=== PATIENT | male | born 1975 | race African-American/Black ===

== ENCOUNTER 2017-03-08 11:48 | Emergency (ER) | payer MEDICAID ==
[~2017-03-08] VITALS: Ht 180.3 cm; Wt 106.1 kg
[2017-03-08 12:01] VITALS: BP 139/91
[2017-03-08 12:50] LABS: KETONES,URINE NEGATIVE (NEGATIVE); LEUKOCYTE ESTERASE ,URINE NEGATIVE (NEGATIVE); NITRITE,URINE NEGATIVE (NEGATIVE); PH,URINE 8 (4.5-8.0); PROTEIN,URINE NEGATIVE (NEGATIVE); UROBILINOGEN,URINE NORMAL MG/DL (0.0-1.0)
[2017-03-08 12:52] LABS: APPEARANCE,URINE SLIGHTLY CLOUDY
[2017-03-08 13:13] LABS: BACTERIA,URINE OCCASIONAL /HPF; SQUAMOUS EPITHELIAL CELL,UR OCCASIONAL /LPF (NONE/OCC); WBC,URINE 0-2 /HPF (0 - 0)
[2017-03-08 13:14] LABS: MUCUS,URINE FEW /LPF (NONE/OCC)
--- NOTE | 2017-03-08 13:17 | Emergency Room Report ---
History of Present Illness General Chief Complaint: Male Urogenital Problems Source: Patient Present Illness HPI 41-year-old male presents to the emergency department for approximately 4 episodes of hematuria over the course of one month. he also reports intermittent dysuria. Patient denies back pain, abdominal pain, frequency, discharge or testicular swelling. Patient reports red tinge to his urine he denies gross hematuria. denies trauma. denies night sweats , unusual significant changes in weight, or hx of neoplastic disease. Patient denies history of urinary problems. He denies fevers, chills, nausea, vomiting. Denies rashes. Allergies: Coded Allergies: No Known Allergies (Unverified , 03/08/17) Patient History Past Medical History: see triage record Past Surgical History: none Pertinent Family History: none Reviewed Nursing Documentation: PMH: Agreed, PSxH: Agreed Nursing Documentation-PMH Hx Asthma: Yes Review of Systems All Other Systems: negative except mentioned in HPI Physical Exam Vital Signs Date Time Temp Pulse Resp B/P (MAP) Pulse Ox O2 Delivery O2 Flow Rate FiO2 03/08/17 11:53 98.1 99 18 139/91 98 Room Air Sp02 EP Interpretation: reviewed, normal General Appearance: no apparent distress, alert, GCS 15, non-toxic Head: normocephalic, atraumatic Eyes: bilateral eye normal inspection, bilateral eye PERRL ENT: hearing grossly normal, normal voice Neck: full range of motion Respiratory: lungs clear, normal breath sounds, speaking full sentences Cardiovascular #1: regular rate, rhythm Gastrointestinal: normal bowel sounds, non tender, soft, no guarding, no rebound Rectal: deferred Genitourinary: normal inspection, no CVA tenderness Musculoskeletal: back normal, gait/station normal, normal range of motion Neurologic: alert, oriented x3, responsive, motor strength/tone normal, sensory intact, speech normal Skin: normal color, no rash, warm/dry, well hydrated Medical Decision Making PA Attestation Dr. Thakkar is my supervising Physician whom patient management has been discussed with. Diagnostic Impression: Primary Impression: Cystitis Additional Impression: Hematuria Qualified Codes: R31.9 - Hematuria, unspecified ER Course 41-year-old male presents to the emergency department for approximately 4 episodes of hematuria over the course of one month. he also reports intermittent dysuria. Patient denies back pain, abdominal pain, frequency, discharge or testicular swelling. Patient reports red tinge to his urine he denies gross hematuria. denies trauma. denies night sweats , unusual significant changes in weight, or hx of neoplastic disease. Patient denies history of urinary problems. He denies fevers, chills, nausea, vomiting. Denies rashes. Ddx considered but are not limited to UTI, renal calculi, malignancy, Urethritis , STI, Cystitis, prostatitis Vital signs: are WNL, pt. is afebrile H&PE are most consistent with possible UTI, no clinical evidence of obstructing stone. ORDERS: - UA : few bacteria, few mucus, mild elevation in RBC's and occult blood ED INTERVENTIONS: - DISCHARGE: At this time pt. is stable for d/c to home. Will provide printed patient care instructions, and any necessary prescriptions. Care plan and follow up instructions have been discussed with the patient prior to discharge. Labs Test 03/08/17 12:00 Urine Color Yellow Urine Appearance Slightly cloudy Urine pH 8 (4.5-8.0) Urine Specific [place] 1.010 (1.005-1.035) Urine Protein Negative (NEGATIVE) Urine Glucose (UA) Negative (NEGATIVE) Urine Ketones Negative (NEGATIVE) Urine Occult Blood 2+ (NEGATIVE) Urine Nitrite Negative (NEGATIVE) Urine Bilirubin Negative (NEGATIVE) Urine Urobilinogen Normal MG/DL (0.0-1.0) Urine Leukocyte Esterase Negative (NEGATIVE) Urine RBC 2-4 /HPF (0 - 0) Urine WBC 0-2 /HPF (0 - 0) Urine Squamous Epithelial Cells Occasional /LPF Urine Bacteria Occasional /HPF (NONE) Urine Mucus Few /LPF (NONE/OCC) Last Vital Signs Date Time Temp Pulse Resp B/P (MAP) Pulse Ox O2 Delivery O2 Flow Rate FiO2 03/08/17 12:01 98.1 18 139/91 98 Room Air 03/08/17 11:53 99 Disposition: HOME, SELF-CARE Condition: Stable Scripts Phenazopyridine Hcl* (PYRIDIUM*) 200 Mg Tablet 200 MG ORAL THREE TIMES A DAY for 3 Days, #9 TAB 0 Refills Prov: Katie oBrja P.A. 03/08/17 Cephalexin* (KEFLEX*) 500 Mg Capsule 500 MG ORAL EVERY 12 HOURS for 7 Days, #14 CAP 0 Refills Prov: Katie Borja P.A. 03/08/17 Referrals: NOT CHOSEN [facility]/,REFERRING (PCP) Patient Instructions: Urinary Tract Infection Additional Instructions: Take medications as directed. Follow up with a Primary Care Provider for UROLOGIST referral in 3-5 days, even if your symptoms have resolved. --Please review list of primary care clinics, if you do not already have a primary care provider Return sooner to ED if new symptoms occur, or current symptoms become worse. - Please note that this Emergency Department Report was dictated using [employer] clerk technology software, occasionally this can lead to erroneous entry secondary to interpretation by the dictation equipment. Katie Borja Mar 08, 2017 13:17
[2017-03-08] MEDS ORDERED: PHENAZOPYRIDIN200 MG ORAL (13:18)
[2017-03-08] MEDS ORDERED: CEPHALEXIN500 MG ORAL (13:18)
[2017-03-08 13:30] VITALS: BP 124/78
== END 2017-03-08 13:31 | disposition home or self-care (01) ==
LOC: EMR 12:30
DX: N30.91 Cystitis, unspecified with hematuria (principal); J45.909 Unspecified asthma, uncomplicated
CPT/HCPCS: 81003; 99284